=== PATIENT | male | born 1955 | race Caucasian/White ===

== ENCOUNTER → 2016-12-09 | Outpatient (CLI) | payer OTHER ==
[~2016-12-09] MED LIST: ASPIRIN CHEWABL81 MG PO; COREG12.5 MG PO; LANTUS INS100 UTS/M1 SQ; LIPITOR80 MG PO; LISINOPRIL2.5 MG PO; NEURONTIN300 MG PO; PLAVIX75 MG PO; PROTONIX40 MG PO; RANEXA500 MG PO
== END ==
LOC: KOH-I 12:38
DX: M54.5 Low back pain (principal); M54.16 Radiculopathy, lumbar region; M47.896 Other spondylosis, lumbar region; M48.06 Spinal stenosis, lumbar region; M51.27 Other intervertebral disc displacement, lumbosacral region
CPT/HCPCS: 72131